=== PATIENT | female | born 1980 | race Caucasian/White ===

== ENCOUNTER 2017-05-24 18:11 | Emergency (ER) | payer BC ==
[2017-05-24 18:16] VITALS: BP 123/75; PULSE 75; TEMP 97.7; BMI 26.2
[2017-05-24] MEDS ORDERED: KETOROLAC TROMETHAMINE 60 MG/2 ML VIAL IM ONE (18:35)
[2017-05-24] MEDS ORDERED: KETOROLAC TROMETHAMINE 60 MG/2 ML VIAL ONE (18:37)
--- NOTE | 2017-05-24 18:40 | PDOC ---
History of Present Illness - General Chief Complaint: Pain Stated Complaint: PAIN Time Seen by Provider: 05/24/17 18:24 History Source: Patient Exam Limitations: No Limitations - History of Present Illness Initial Comments: 05/24/17 18:35 c/o 2-3 days neck pain radiates to her left shoulder and back worse with movement. no chest pain or shortness of breath. non smoker . Pt states worse when lying down to sleep and at work typing. Past History - Past Medical History Allergies/Adverse Reactions: Allergies Allergy/AdvReac Type Severity Reaction Status Date / Time No Known Allergies Allergy Verified 05/24/17 18:16 Home Medications: Ambulatory Orders Cyclobenzaprine HCl [Flexeril -] 10 mg PO TID PRN #21 tablet 05/24/17 Methylprednisolone [Medrol Dose Andrea] 4 mg PO ASDIR #21 tablet 05/24/17 COPD: No - Surgical History Appendectomy: Yes Cholecystectomy: Yes - Immunization History Immunization Up to Date: Yes - Suicide/Smoking/Psychosocial Hx Smoking History: Never smoked Have you smoked in the past 12 months: No Hx Alcohol Use: No Drug/Substance Use Hx: No Substance Use Type: None *Physical Exam - Vital Signs Last Vital Signs Temp Pulse Resp BP Pulse Ox 97.7 F 75 20 123/75 100 05/24/17 18:13 05/24/17 18:13 05/24/17 18:13 05/24/17 18:13 05/24/17 18:13 - Physical Exam General Appearance: Yes: Nourished, Appropriately Dressed HEENT: positive: EOMI, JEANETH, Normal ENT Inspection, TMs Normal, Pharynx Normal Neck: positive: Supple, Decreased range of motion (due to pain, decreased turning to the left ), Tender lateral. negative: Tender, Rigidity, Tender midline Respiratory/Chest: positive: Lungs Clear, Normal Breath Sounds. negative: Chest Tender, Accessory Muscle Use, Stridor, Wheezing Cardiovascular: positive: Regular Rhythm, Regular Rate Gastrointestinal/Abdominal: positive: Normal Bowel Sounds, Soft Musculoskeletal: positive: Normal Inspection, Muscle Spasm (left trapezious muscle ttp ). negative: CVA Tenderness, CVA Tenderness (R), CVA Tenderness (L) , Decreased Range of Motion, Vertebral Tenderness Extremity: positive: Normal Capillary Refill, Normal Inspection, Normal Range of Motion, Other (left arm FROM, pain with abduction to the lateral/posteriro aspect of shoulder ). 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, Fully Oriented, Alert, Normal Response, Motor Strength 10/10 Medical Decision Making - Medical Decision Making 05/24/17 18:36 cc: 3 days pain to the left side of the neck that is now radiating to her upper shoulder causing burning pain, worse with movement of her neck and the shoulder no fever no rash non toxic appearing will give toradol now dc home on steroids and muscle relaxants strict follow up with the orthopedist pt agrees with plan all questions asked and answered at discharge pt understands to return to ER for any worsening symptoms 05/24/17 18:43 *DC/Admit/Observation/Transfer Diagnosis at time of Disposition: Neck muscle strain Qualifiers: Encounter type: initial encounter Qualified Code(s): S16.1XXA - Strain of muscle, fascia and tendon at neck level, initial encounter - Discharge Dispostion Disposition: HOME Condition at time of disposition: Good - Prescriptions Prescriptions: Cyclobenzaprine HCl [Flexeril -] 10 mg PO TID PRN #21 tablet PRN Reason: Muscle Spasms Methylprednisolone [Medrol Dose Andrea] 4 mg PO ASDIR #21 tablet - Referrals Referrals: Josh Coulter MD [Primary Care Provider] - Shiva Banks MD [Staff Physician] - - Patient Instructions Additional Instructions: follow with the orthopedist take the flexeril muscle relaxant as directed take the steroid dose pack as directed apply heat to the area of pain Icy Hot or Aspercream or Biofreeze topical ointments/creams of your choice - Post Discharge Activity
== END 2017-05-24 18:49 | disposition home or self-care (01) ==
LOC: JERFT 18:11
PROC: 3E0233Z Introduction of Anti-inflammatory into Muscle, Percutaneous Approach (ICD-10-PCS; principal; 2017-05-24)
DX: S16.1XXA Strain of muscle, fascia and tendon at neck level, initial encounter (principal); X58.XXXA Exposure to other specified factors, initial encounter; Y93.89 Activity, other specified; Y92.9 Unspecified place or not applicable
CPT/HCPCS: 99281-25

== ENCOUNTER 2018-01-29 23:31 | Emergency (ER) | payer BC ==
--- NOTE | 2018-01-30 00:02 | PDOC ---
History of Present Illness - General Stated Complaint: EARACHE Time Seen by Provider: 01/29/18 23:44 History Source: Patient Exam Limitations: No Limitations - History of Present Illness Initial Comments: 01/30/18 01:58 Best Contact: /[phone] PCP:N/A Pmhx:0 Pshx:0 Allergies:0 FH:0 Social Hx: Cigarettes/ 0 Alcohol/ 0 Drugs/0 LMP:jan 20, 2018 37-year-old female presents to the ER complaining of difficulty hearing to the right ear 2 days without fever, chills, headache, dizziness, lightheadedness, facial pain, sore throat. Patient states her right ear feels stuffy. Past History - Past Medical History Allergies/Adverse Reactions: Allergies Allergy/AdvReac Type Severity Reaction Status Date / Time No Known Allergies Allergy Verified 01/30/18 00:50 Home Medications: Ambulatory Orders Cyclobenzaprine HCl [Flexeril -] 10 mg PO TID PRN #21 tablet 05/24/17 Methylprednisolone [Medrol Dose Andrea] 4 mg PO ASDIR #21 tablet 05/24/17 COPD: No - Surgical History Appendectomy: Yes Cholecystectomy: Yes - Immunization History Immunization Up to Date: Yes - Suicide/Smoking/Psychosocial Hx Smoking History: Never smoked Have you smoked in the past 12 months: No Hx Alcohol Use: No Drug/Substance Use Hx: No Substance Use Type: None Review of Systems - Review of Systems Able to Perform ROS?: Yes Comments:: 01/30/18 01:59 CONSTITUTIONAL: Absent: fever, chills, diaphoresis, generalized weakness, malaise, loss of appetite HEENT: +right ear difficulty hearing Absent: rhinorrhea, nasal congestion, throat pain, throat swelling, difficulty swallowing, mouth swelling, eye pain, visual Changes CARDIOVASCULAR: Absent: chest pain, loss of consciousness, palpitations, irregular heart rate, peripheral edema RESPIRATORY: Absent: cough, shortness of breath, dyspnea with exertion, orthopnea, wheezing, stridor, hemoptysis GASTROINTESTINAL: Absent: abdominal pain, abdominal distension, nausea, vomiting, diarrhea, constipation, melena, hematochezia GENITOURINARY: Absent: dysuria, frequency, urgency, hesitancy, hematuria, flank pain, genital pain MUSCULOSKELETAL: Absent: myalgia, arthralgia, joint swelling SKIN: Absent: rash, itching, pallor Is the patient limited Mohawk proficient: No *Physical Exam - Physical Exam Comments: 01/30/18 02:00 GENERAL: Well developed, well nourished. Awake and alert. No acute distress. HEENT: Right ear: Cerumen impaction Normocephalic, atraumatic. PERRLA, EOMI. No conjunctival pallor. Sclera are non- icteric. Moist mucous membranes. Oropharynx is clear. NECK: Supple. Full ROM. No JVD. Carotid pulses 2+ and symmetric, without bruits. No thyromegaly. No lymphadenopathy. CARDIOVASCULAR: Regular rate and rhythm. No murmurs, rubs, or gallops. Distal pulses are 2+ and symmetric. PULMONARY: No evidence of respiratory distress. Lungs clear to auscultation bilaterally. No wheezing, rales or rhonchi. ABDOMINAL: Soft. Non-tender. Non-distended. No rebound or guarding. No organomegaly. Normoactive bowel sounds. MUSCULOSKELETAL Normal range of motion at all joints. No bony deformities or tenderness. No CVA tenderness. EXTREMITIES: No cyanosis. No clubbing. No edema. No calf tenderness. SKIN: Warm and dry. Normal capillary refill. No rashes. No jaundice. Procedure: Right ear: Warm 10cc NS irrigation Right ear: Neg pain on auricular movement, Tm NL *DC/Admit/Observation/Transfer Diagnosis at time of Disposition: Impacted cerumen of right ear - Discharge Dispostion Disposition: HOME Condition at time of disposition: Stable Decision to Admit order: No - Referrals Referrals: Lance Anderson MD [Staff Physician] - - Patient Instructions Printed Discharge Instructions: DI for Cerumen Impaction Additional Instructions: Return to the ER for any concerns - Post Discharge Activity
[2018-01-30 00:50] VITALS: BP 121/78; PULSE 79; TEMP 98.4; BMI 23.9
== END 2018-01-30 01:26 | disposition home or self-care (01) ==
LOC: JER 23:31
PROC: 3E1B78Z Irrigation of Ear using Irrigating Substance, Via Natural or Artificial Opening (ICD-10-PCS; principal; 2018-01-29)
DX: H61.21 Impacted cerumen, right ear (principal)
CPT/HCPCS: 99281-25

== ENCOUNTER 2024-11-22 20:52 | Observation (INO) | payer OTHER, BC ==
[2024-11-22 21:02] VITALS: BMI 24.7
[2024-11-22] MEDS ORDERED: PIPERACILLIN/TAZOB 4.5 GM 4.5 GM/100 ML BAG IVPB ONE (21:38)
[2024-11-22] MEDS ORDERED: ACETAMINOPHEN 325 MG TABLET (FP) ONE (21:38)
[2024-11-22] MEDS: LACTATED RINGERS SOLUTION 1000 ML INFUS.BAG IV ONE (21:55)
[2024-11-22] MEDS: ACETAMINOPHEN 325 MG TABLET (FP) PO ONE (21:55)
[2024-11-22] MEDS: PIPERACILLIN/TAZOB 4.5 GM 4.5 GM in DEXTROSE 5%-WATER 100 ML IVPB ONE (22:07)
[2024-11-22 22:11] LABS: MCHC 30.7 g/dl (32.2-35.5); MEAN CELL VOLUME 77.6 fl (79.4-94.8); RDW 17.9 % (12.2-17.1)
[2024-11-22 22:12] LABS: VENOUS O2 SATURATION 83.6 % (70-80); VENOUS PCO2 35.5 mmHg (38-52); VENOUS PH 7.396 (7.310-7.410)
[2024-11-22 22:19] LABS: INR 1.14 (0.83-1.09); PROTHROMBIN TIME (PATIENT) 12.5 SEC (9.7-13.0)
[2024-11-22 22:21] LABS: ACTIVATED PTT 29.8 SECONDS (25.2-36.5)
[2024-11-22 22:28] LABS: ABSOLUTE IMMATURE GRANULOCYTES 0.05 x10^3/uL (0.0-0.031); BASOPHILS # 0.02 x10^3/uL (0.01-0.08); HEMATOCRIT 31.9 % (34.1-44.9); HEMOGLOBIN 9.8 g/dL (11.2-15.7); MEAN PLT VOLUME 11.5 fl (9.4-12.3); MONOCYTE # 0.56 x10^3/uL (0.24-0.86); MONOCYTE % 4.4 % (4.7-12.5); PLATELET COUNT 286 x10^3/uL (182-369)
[2024-11-22 22:40] LABS: CALCIUM 8.8 mg/dL (8.5-10.1)
[2024-11-22 22:41] LABS: ALBUMIN 3.3 g/dl (3.4-5.0)
[2024-11-22 22:44] LABS: CREATININE 1.2 mg/dL (0.55-1.3)
[2024-11-22 22:46] LABS: BILIRUBIN,TOTAL 0.2 mg/dL (0.2-1); TOT PROT 6.8 g/dl (6.4-8.2)
[2024-11-22 23:54] LABS: EPI CELLS 36 /uL (0-25.1); HYALINE CASTS 0 /uL (0-3.1); URINE APPEARANCE CLEAR; URINE BACTERIA 368 /uL (0-1359); URINE BILIRUBIN NEGATIVE (NEGATIVE); URINE COLOR YELLOW; URINE GLUCOSE (UA) NEGATIVE (NEGATIVE); URINE KETONE NEGATIVE (NEGATIVE); URINE LEUK ESTERASE NEGATIVE (NEGATIVE); URINE NITRITE NEGATIVE (NEGATIVE); URINE PROTEIN NEGATIVE (NEGATIVE); URINE RBC 29 /uL (0-23.9); URINE UROBILINOGEN 0.2 mg/dL (0.2-1.0); URINE WBC 15 /uL (0-25.8)
[2024-11-23] MEDS ORDERED: ACETAMINOPHEN 325 MG TABLET (FP) PO PRN (00:22)
[2024-11-23] MEDS ORDERED: DOXYCYCLINE HYCLATE 100 MG VIAL ONE (01:05)
[2024-11-23 01:06] LABS: HCV DIAGNOSTIC IN-HOUSE W/RFLX NON-REACTIVE (NONREACTIVE); HIV INTERPRETATION NEGATIVE (NEGATIVE)
[2024-11-23] MEDS ORDERED: DEXTROSE 5%-WATER 100 ML IVPB ONE (01:15)
[2024-11-23] MEDS: DOXYCYCLINE INJECTION 100 MG in DEXTROSE 5%-WATER 100 ML IVPB ONE (01:30)
[2024-11-23] MEDS: KETOROLAC TROMETHAMINE 15 MG/ML VIAL IVPUSH PRN (02:14)
[2024-11-23] MEDS: LACTATED RINGERS SOLUTION 1,000 ML/1,000 ML INFUS.BAG IV SCH (03:24)
[2024-11-23] MEDS: DOXYCYCLINE HYCLATE 100 MG CAPSULE PO SCH (03:33)
[2024-11-23] MEDS: ENOXAPARIN NA (PORCINE) 40 MG/0.4 ML DISP.SYRIN SQ SCH (10:41)
[2024-11-23] MEDS: DOXYCYCLINE HYCLATE 100 MG TABLET PO SCH (10:41)
[2024-11-23 10:48] LABS: ABSOLUTE IMMATURE GRANULOCYTES 0.03 x10^3/uL (0.0-0.031); BASOPHILS # 0.04 x10^3/uL (0.01-0.08); EOSINOPHIL % 0.4 % (0.7-5.8); EOSINOPHILS # 0.04 x10^3/uL (0.04-0.36); HEMOGLOBIN 9.1 g/dL (11.2-15.7); MCHC 30.3 g/dl (32.2-35.5); MEAN CELL VOLUME 77.9 fl (79.4-94.8); MEAN PLT VOLUME 11.7 fl (9.4-12.3); MONOCYTE % 7.7 % (4.7-12.5); PLATELET COUNT 251 x10^3/uL (182-369); RDW 18.1 % (12.2-17.1)
[2024-11-23 11:11] LABS: POTASSIUM 4.5 mmol/L (3.5-5.1)
[2024-11-23] MEDS: CEFTRIAXONE 1 GM in DEXTROSE 5%-WATER - 50 ML IVPB SCH (11:25)
[2024-11-23] MEDS: PHENAZOPYRIDINE HCL 100 MG TABLET (FP) PO ONE (11:25)
[2024-11-23] MEDS: POLYETHYLENE GLYCOL (HEALTHYLAX) 3350 17 GM PACKET PO ONE (11:25)
[2024-11-23 11:43] LABS: BLOOD UREA NITROGEN 7.4 mg/dL (7-18)
[2024-11-23 11:46] LABS: CREATININE 0.7 mg/dL (0.55-1.3)
[2024-11-23 11:47] LABS: BILIRUBIN,TOTAL 0.3 mg/dL (0.2-1)
[2024-11-23 12:03] LABS: TOT PROT 6.2 g/dl (6.4-8.2)
[2024-11-23] MEDS: AMOX TR/POT CLAV 500MG/125MG TABLETS (FP) PO SCH (18:13)
[2024-11-23] MEDS: PIPERACILLIN/TAZOB 3.375 GM 3.375 GM in DEXTROSE 5%-WATER - 50 ML IVPB SCH (21:08)
[2024-11-23] MEDS: DOXYCYCLINE INJECTION 100 MG in DEXTROSE 5%-WATER 100 ML IVPB SCH (21:08)
[2024-11-23] MEDS: DOCUSATE SODIUM 100 MG CAPSULE (FP) PO SCH (21:10)
[2024-11-23] MEDS: POLYETHYLENE GLYCOL (HEALTHYLAX) 3350 17 GM PACKET PO SCH (21:10)
[2024-11-23] MEDS: ACETAMINOPHEN 325 MG TABLET (FP) PO PRN (21:15)
[2024-11-23] MEDS: PHENAZOPYRIDINE HCL 100 MG TABLET (FP) PO SCH (21:16)
[2024-11-23] MEDS ORDERED: NITROFURANTOIN MONOHYD/M-CRYST 100 MG CAPSULE PO SCH (22:00)
[2024-11-24] MEDS: PIPERACILLIN/TAZOB 3.375 GM 3.375 GM in DEXTROSE 5%-WATER - 50 ML IVPB SCH (02:02)
[2024-11-24] MEDS: VANCOMYCIN/WATER FOR INJ (PEG) 1,000 MG/200 ML BAG IVPB ONE (06:40)
[2024-11-24 08:00] LABS: ABSOLUTE IMMATURE GRANULOCYTES 0.01 x10^3/uL (0.0-0.031); BASOPHILS # 0.03 x10^3/uL (0.01-0.08); EOSINOPHIL % 1.7 % (0.7-5.8); HEMATOCRIT 31.1 % (34.1-44.9); HEMOGLOBIN 9.7 g/dL (11.2-15.7); MCHC 31.2 g/dl (32.2-35.5); MEAN PLT VOLUME 11.2 fl (9.4-12.3); MONOCYTE # 0.63 x10^3/uL (0.24-0.86); MONOCYTE % 10.6 % (4.7-12.5); PLATELET COUNT 273 x10^3/uL (182-369)
[2024-11-24] MEDS: diphenhydrAMINE HCL 25 MG CAPSULE (FP) PO ONE (08:03)
[2024-11-24 08:27] LABS: POTASSIUM 4.3 mmol/L (3.5-5.1)
[2024-11-24 08:46] LABS: CALCIUM 8.9 mg/dL (8.5-10.1)
[2024-11-24 08:47] LABS: ALBUMIN 2.9 g/dl (3.4-5.0); BLOOD UREA NITROGEN 10.1 mg/dL (7-18)
[2024-11-24 08:50] LABS: CREATININE 0.7 mg/dL (0.55-1.3)
[2024-11-24 08:51] LABS: BILIRUBIN,TOTAL 0.3 mg/dL (0.2-1)
[2024-11-24 08:52] LABS: TOT PROT 6.2 g/dl (6.4-8.2)
[2024-11-25 03:09] VITALS: RESP 18
[2024-11-25 08:24] LABS: ABSOLUTE IMMATURE GRANULOCYTES 0.03 x10^3/uL (0.0-0.031); BASOPHILS # 0.05 x10^3/uL (0.01-0.08); EOSINOPHIL % 1.6 % (0.7-5.8); EOSINOPHILS # 0.12 x10^3/uL (0.04-0.36); HEMATOCRIT 31.3 % (34.1-44.9); HEMOGLOBIN 9.5 g/dL (11.2-15.7); MCHC 30.4 g/dl (32.2-35.5); MEAN CELL VOLUME 76.7 fl (79.4-94.8); MEAN PLT VOLUME 11.5 fl (9.4-12.3); MONOCYTE # 0.57 x10^3/uL (0.24-0.86); MONOCYTE % 7.5 % (4.7-12.5); PLATELET COUNT 306 x10^3/uL (182-369); RDW 17.8 % (12.2-17.1)
[2024-11-25 08:52] LABS: POTASSIUM 4.6 mmol/L (3.5-5.1)
[2024-11-25 08:59] LABS: CALCIUM 8.8 mg/dL (8.5-10.1)
[2024-11-25 09:00] LABS: BLOOD UREA NITROGEN 11.7 mg/dL (7-18); MAGNESIUM 1.8 mg/dL (1.8-2.4)
[2024-11-25 09:03] LABS: CREATININE 0.8 mg/dL (0.55-1.3)
[2024-11-25 09:04] LABS: BILIRUBIN,TOTAL 0.2 mg/dL (0.2-1); TOT PROT 6.5 g/dl (6.4-8.2)
[2024-11-25 14:36] VITALS: BP 109/69; PULSE 84; TEMP 98.2
== END 2024-11-25 15:20 | disposition home or self-care (01) ==
LOC: JER 20:52 → JERBED 21:24 → J8W 11-23 02:02
PROVIDERS: ADMIT Hospitalist; ATTEND Nurse Practitioner Family
PROC: 3E03329 Introduction of Other Anti-infective into Peripheral Vein, Percutaneous Approach (ICD-10-PCS; principal; 2024-11-22)
PROC: 3E0333Z Introduction of Anti-inflammatory into Peripheral Vein, Percutaneous Approach (ICD-10-PCS; 2024-11-22)
PROC: 3E0337Z Introduction of Electrolytic and Water Balance Substance into Peripheral Vein, Percutaneous Approach (ICD-10-PCS; 2024-11-22)
DX: R78.81 Bacteremia (principal); R31.9 Hematuria, unspecified; K59.00 Constipation, unspecified; R10.9 Unspecified abdominal pain; R50.9 Fever, unspecified; Z90.49 Acquired absence of other specified parts of digestive tract; Z29.9 Encounter for prophylactic measures, unspecified
CPT/HCPCS: 0241U-QW; 36415; 71045-TC-FY; 74177-TC; 76830-TC; 80053; 81003; 82803; 83605; 83735; 84484; 84703; 85025; 85610; 85730; 86780; 86803; 86850; 86900; 86901; 87040; 87070; 87077; 87086; 87205; 87389; 87491; 87591; 87661; 93005; 93010; 94010; 99285-25; G0378; J0878; Q9967